=== PATIENT | female | born 1990 | race Caucasian/White ===

== ENCOUNTER 2022-07-27 07:42 | Outpatient (RCR) | payer BC, SELFPAY ==
[2022-07-27 07:57] VITALS: BMI 28.8
[2022-07-27 14:13] VITALS: BMI 28.8
== END 2022-10-13 09:55 | disposition home or self-care (01) ==
LOC: ANHDMC 07:42
PROVIDERS: PCP Internal Medicine; Visit Provider Obstetrics & Gynecology
DX: O24.319 Unspecified pre-existing diabetes mellitus in pregnancy, unspecified trimester (principal); Z3A.00 Weeks of gestation of pregnancy not specified; Z71.3 Dietary counseling and surveillance
CPT/HCPCS: 97802

== ENCOUNTER 2022-09-17 14:00 | Outpatient (RCR) | payer BC, SELFPAY ==
[2022-08-06 13:06] VITALS: BP 104/62; PULSE 92
[2022-08-12 16:22] VITALS: BP 106/59; PULSE 85
--- NOTE | 2022-08-12 17:15 | PC.NURSE ---
Pt states that she may be leaking fluid. ROM plus negative.
[2022-08-20 15:04] VITALS: BP 122/68; PULSE 82
[2022-08-26 16:19] VITALS: BP 105/61; PULSE 97
[2022-09-03 14:42] VITALS: BP 104/62; PULSE 77
[2022-09-10 15:13] VITALS: BP 93/61; PULSE 93
--- NOTE | ~2022-09-17 | US_ITS ---
EXAMINATION: US OB limited DATE: 08/12/2022 17:02 INDICATION: Gestational diabetes, evaluate ARSALAN. TECHNIQUE: Real-time ultrasound of the pelvis was performed. COMPARISON: None. FINDINGS: There is a single living fetus in vertex presentation, longitudinal lie. The placenta is right poste rior. heart rate is 151 beats per minute (bpm). The amniotic fluid index is 14.6 cm, which is n ormal (5th to 95th percentile is 8.1 to 24.8 cm). IMPRESSION: 1. Single living fetus in vertex presentation. 2. Normal ARSALAN of 14.6 cm. Reviewed, dictated and finalized at location K.
== END 2022-09-27 12:48 | disposition home or self-care (01) ==
LOC: ANHOBOP 14:00
PROVIDERS: PCP Internal Medicine; Visit Provider Obstetrics & Gynecology
DX: O24.419 Gestational diabetes mellitus in pregnancy, unspecified control (principal); Z3A.33 33 weeks gestation of pregnancy
CPT/HCPCS: 59025; 76815; 84112

== ENCOUNTER 2022-09-19 16:53 | Inpatient (IN) | payer BC, SELFPAY ==
[2022-09-19] VITALS (13 sets, daily range): BP systolic 84–112; BP diastolic 47–77; PULSE 75–107; RESP 15–17; TEMP 36.8–37.1; BMI 27.5
--- NOTE | 2022-09-19 16:53 | LDADM ---
This patient, Rosie Membreno, was admitted to Labor/Delivery/Recovery 107 on 09/19/22 at 16:53. Plans for labor, pain management and were discussed with patient. Patient/family oriented to hospital policies and general routines including ID bracelet, bed and alarms, visiting hours, pain management, procedures, bathroom and other care routines, personal items, smoking policy, room service/diet and guest tray routines, infant security routines, and visiting hours. Patient/Family are encouraged to report perceived risks to care and to ask questions if they do not understand what they are told or what they should do. See OBIX for further documentation.
[2022-09-19 18:24] LABS: Basophils Percent Auto 0.2 % (0.2-1.2); Eosinophils Percent Auto 0.4 % (0-4.4); Hematocrit 35.2 % (37.0-47.0); Hemoglobin 11.6 g/dL (12.0-15.0); Immature Granulocyte Absolute 0.08 K/mm3 (0.00-0.031); Immature Granulocyte Percent A 0.7 % (0-0.5); Mean Corpuscular Hemoglobin 30.4 pg (26-34); Mean Corpuscular Volume 92.4 fl (80-100); Mean Platelet Volume 10.3 fl (7.4-10.4); Monocytes Absolute Auto 0.6 K/mm3 (0.1-0.6); Monocytes Percent Auto 5.3 % (2.6-8.5); Neutrophils Absolute Auto 7.4 K/mm3 (1.3-6.7); Neutrophils Percent Auto 68.4 % (45.5-73.1); Platelet Count Result 270 k/mm3 (150-375); Red Blood Count 3.81 M/mm3 (4.2-5.4); Red Cell Distribution Width 13.7 % (11.5-14.5); White Blood Count 10.8 K/mm3 (4.5-10.0)
[2022-09-19] MEDS: DINOPROSTONE 10 MG VAG INSERT VAGINAL (18:41)
[2022-09-19] MEDS: LACTATED RINGERS 1,000 ML 125 ML IV CONT (19:08)
[2022-09-19] MEDS: AMPICILLIN 2 GM/NS 100 ML 2 GM/100 ML BAG IVPB (19:10)
[2022-09-19 22:26] LABS: Glucose Point of Care 76 mg/dl (65-105)
[2022-09-19 22:26] LABS: Glucose Point of Care 79 mg/dl (65-105)
[2022-09-19] MEDS: AMPICILLIN 1 GM/NS 50 ML 1 GM/50 ML BAG IVPB (23:08)
[2022-09-20] VITALS (151 sets, daily range): BP systolic 86–148; BP diastolic 44–132; PULSE 47–128; RESP 15–18; TEMP 36.6–37.6; O2SAT 86–100
[2022-09-20] MEDS: ACETAMINOPHEN 500 MG TABLET 1000 MG PO (02:20)
[2022-09-20] MEDS: AMPICILLIN 1 GM/NS 50 ML 1 GM/50 ML BAG IVPB ×3 (03:28→12:53)
[2022-09-20] MEDS: ONDANSETRON INJ 4 MG/2 ML VIAL IV PUSH (03:55)
[2022-09-20] MEDS: OXYTOCIN 30 UNITS/NS 500 ML 30 UNITS/500 ML BAG IV CONT (05:41)
[2022-09-20 06:25] LABS: Glucose Point of Care 86 mg/dl (65-105)
--- NOTE | 2022-09-20 07:25 | WPDANESEPP ---
Anes - Eval Pre Procedure Procedure: labor epidural Date/Time: 09/20/22 07:25 Surgeon: brendan Preop Diagnosis: pain during labor Pre Op Diagnosis: iol Patient Data Age: 32 Gender: F Height: 1.65 m Weight: 75 kg Last Vital Signs Temp 36.6 C 09/20/22 06:10 Pulse 86 09/20/22 06:00 Resp 15 09/20/22 04:00 BP 128/54 L 09/20/22 07:02 Allergies Allergy/AdvReac Type Severity Reaction Status Date / Time Sulfa (Sulfonamide AdvReac Unknown Nausea and Verified 09/19/22 22:30 Antibiotics) Vomiting Home Medications Medication Instructions Recorded Confirmed Type calcium carbonate 975 mg-magnesium 1 tablet PO DAILY 08/06/22 09/19/22 History carbonate 232 mg oral tablet cetirizine 10 mg capsule (Zyrtec) 10 mg PO DAILY PRN Allergy Symptoms 08/06/22 09/19/22 History cholecalciferol (vitamin D3) 25 1,000 unit PO DAILY 08/06/22 09/19/22 History mcg (1,000 unit) capsule (Vitamin D3) omega-3 650 mg-dha 400 mg-epa 200 1 cap PO DAILY 08/06/22 09/19/22 History mg-fish oil-vit D3 300 unit capsule ([place]-3 Plus Vitamin D3) vit no.95-ferrous 1 tablet PO DAILY 08/06/22 09/19/22 History fumarate 28 mg-folic acid 800 mcg tablet () pyridoxine (vitamin B6) 25 mg 25 mg PO DAILY 08/06/22 09/19/22 History tablet Laboratory Tests 09/19/22 09/19/22 09/19/22 18:16 18:35 20:45 WBC 10.8 H K/mm3 (4.5-10.0) RBC 3.81 L M/mm3 (4.2-5.4) Hgb 11.6 L g/dL (12.0-15.0) Hct 35.2 L % (37.0-47.0) MCV 92.4 fl (80-100) MCH 30.4 pg (26-34) MCHC 33.0 g/dl (32-36) RDW 13.7 % (11.5-14.5) Plt Count 270 k/mm3 (150-375) MPV 10.3 fl (7.4-10.4) Immature Gran % (Auto) 0.7 H % (0-0.5) Neut % (Auto) 68.4 % (45.5-73.1) Lymph % (Auto) 25.0 % (18.3-44.2) [place] % (Auto) 5.3 % (2.6-8.5) Eos % (Auto) 0.4 % (0-4.4) Baso % (Auto) 0.2 % (0.2-1.2) Lymph # (Auto) 2.70 K/mm3 (0.9-3.2) [place] # (Auto) 0.6 K/mm3 (0.1-0.6) Eos # (Auto) 0.0 K/mm3 (0-0.3) Baso # (Auto) 0.0 K/mm3 (0.0-0.1) Abs Immat Gran (auto) 0.08 H K/mm3 (0.00-0.031) Absolute Neuts (auto) 7.4 H K/mm3 (1.3-6.7) Absolute Nucleated RBC 0.0 K/mm3 (0.0-0.012) Nucleated RBC % 0.0 % (0.0-0.2) POC Capillary Glucose 79 mg/dl 76 mg/dl (65-105) (65-105) RPR Pending Blood Type A Positive Antibody Screen Negative 09/20/22 06:18 WBC RBC Hgb Hct MCV MCH MCHC RDW Plt Count MPV Immature Gran % (Auto) Neut % (Auto) Lymph % (Auto) [place] % (Auto) Eos % (Auto) Baso % (Auto) Lymph # (Auto) [place] # (Auto) Eos # (Auto) Baso # (Auto) Abs Immat Gran (auto) Absolute Neuts (auto) Absolute Nucleated RBC Nucleated RBC % POC Capillary Glucose 86 mg/dl (65-105) RPR Blood Type Antibody Screen Patient hx anesthesia problems: none Family hx anesthesia problems: none Results Review: All pre-operative results and documents have been reviewed as part of the pre-operative evaluation. [facility] Past Medical History Medical History (Updated 09/20/22 @ 07:25 by Sandy Stauffer CRNA) IUP (intrauterine ), incidental Surgical History Surgical History [place] teeth removed Family History Family History (Updated 08/26/22 @ 16:23 by Roma Seth RN) Father Malignant neoplasm of prostate Family history of hypercholesterolemia Grandparent Malignant neoplasm of prostate Family history of malignant neoplasm of breast in first degree relative, Onset Age: 60 Family history of hypercholeste
--- NOTE | 2022-09-20 08:53 | P.HP_ITS ---
Obstetrics - Admit Note Admission Note: record reviewed. Additions to the history and/or subsequent changes in the physical findings follow. 32 y/o G1 at 39 4/7 weeks here for scheduled induction of labor. Well- controlled A1DM. GBS pos. Cervidil overnight, has been withdrawn. She is receiving oxytocin. and is comfortable with epidural. AVSS NST reactive TOCO: contractions every 2-5 min ABD soft, nontender, gravid, vertex EXT nontender Cervix 4-5/80/-2. AROM with thinly mec-stained fluid. Vertex. A: IUP at term with A1DM, GBS, here for induction of labor. P: Oxytocin, ampicillin, accuchecks. Anticipate .
[2022-09-20 10:05] LABS: Glucose Point of Care 81 mg/dl (65-105)
[2022-09-20] MEDS: LACTATED RINGERS 1,000 ML 125 ML IV CONT (11:23)
--- NOTE | 2022-09-20 12:36 | PM.OBPNLAB ---
Pain Control Date/time seen: 09/20/22 12:36 Comments: Comfortable with epidural. Pelvic Exam Dilation (cm): 7 Effacement (%): 100 station: +1 Contractions Monitor mode: External Contraction frequency: 4 Contraction pattern: Regular Status status: Category l Assessment and Plan Comments: Accucheck 81. IUPC placed. Continue labor.
[2022-09-20 13:01] LABS: Glucose Point of Care 63 mg/dl (65-105)
[2022-09-20 13:41] LABS: Glucose Point of Care 82 mg/dl (65-105)
[2022-09-20 15:49] LABS: Rapid Plasma Reagin Non-Reactive (NonReactive)
--- NOTE | 2022-09-20 16:16 | PM.OBPRVD ---
OB - Delivery Note Procedure Delivery date: 09/20/22 Procedure: Induction of labor with Events: Gestational Diabetes Induction method: Per Cervidil Protocol Delivery augmentation: Rupture of Membranes and Pitocin Delivery monitor: External FHT, External Uterine and Internal Uterine Route of delivery: Laceration Description: Perineal - 2nd Degree Delivery repair: vicryl (3-0) Specimen: Yes (cord blood, placenta) Quantitative Blood Loss (ml): 420 Anesthesia type: Epidural Disposition: PACU Complications: None Narrative: 32 y/o G1 at 39 4/7 weeks gestation who presented to the hospital for induction of labor. Cervidil was placed overnight. She received ampicillin for GBS colonization. Accuchecks were normal throughout labor. Cervidil was withdrawn in the morning, and oxytocin was administered intravenously. Amniotomy was performed with return of clear fluid. She received an epidural for pain control. Her labor progressed and her cervix dilated completely. She pushed with good effort and delivered the 's head to the perineum, followed by the body. The nose and mouth were bulb suctioned. After a delay, the cord was clamped and cut. The infant was handed off the field. Cord blood was collected. The placenta delivered spontaneously and was grossly normal in appearance. The usual 3 vessel cord was noted. A second degree midline perineal laceration was sustained. This was reapproximated using 3 0 Vicryl in the usual layered fashion. Excellent hemostasis resulted as did excellent reapproximation of the normal anatomy. Needle and instrument counts were correct. The patient was taken to recovery room in stable condition. The infant went to the nursery in stable condition. I was present and scrubbed for the entire delivery. Baby Date of : 09/20/22 Time of : 15:51 Weeks of gestation at delivery: 39 Infant gender: Female presentation: vertex position: Left Occiput Anterior Placenta delivery description: Spontaneous and Normal Configuration Cord Vessel Description: 3 Vessels and Delayed Cord Clamping score one minute: 8 score five minutes: 9
--- NOTE | 2022-09-20 16:18 | PM.OBDSVD ---
DS: Admitting Diagnosis Discharge Date 09/22/22 Admitting Diagnosis IUP at 39 4/7 weeks A1DM GBS pos DS: Discharge Diagnosis Discharge Diagnosis (1) (normal spontaneous vaginal delivery): Code(s): O80 - Encounter for full-term uncomplicated delivery Status: Acute (2) GDM (gestational diabetes mellitus), class A1: Code(s): O24.410 - Gestational diabetes mellitus in , diet controlled Status: Acute (3) GBS (group B Streptococcus carrier), +RV culture, currently : Code(s): O99.820 - Streptococcus B carrier state complicating Status: Acute OB - DS: Summary OB Procedures : None OB Procedures Intrapartum: Spontaneous Vag Delivery and GBS prophylaxis OB Procedures: : None Time Spent with Patient Time attestation: Total time spent providing and/or coordinating discharge services: DS: Data Data Completed and Pending Labs on day of discharge: Labs from last 24 hours 09/20/22 09/20/22 09/20/22 13:29 12:57 09:58 WBC RBC Hgb Hct MCV MCH MCHC RDW Plt Count MPV Immature Gran % (Auto) Neut % (Auto) Lymph % (Auto) [place] % (Auto) Eos % (Auto) Baso % (Auto) Lymph # (Auto) [place] # (Auto) Eos # (Auto) Baso # (Auto) Abs Immat Gran (auto) Absolute Neuts (auto) Absolute Nucleated RBC Nucleated RBC % POC Capillary Glucose 82 63 L 81 RPR Blood Type Antibody Screen 09/20/22 09/19/22 09/19/22 06:18 20:45 18:35 WBC RBC Hgb Hct MCV MCH MCHC RDW Plt Count MPV Immature Gran % (Auto) Neut % (Auto) Lymph % (Auto) [place] % (Auto) Eos % (Auto) Baso % (Auto) Lymph # (Auto) [place] # (Auto) Eos # (Auto) Baso # (Auto) Abs Immat Gran (auto) Absolute Neuts (auto) Absolute Nucleated RBC Nucleated RBC % POC Capillary Glucose 86 76 79 RPR Blood Type Antibody Screen 09/19/22 18:16 WBC 10.8 H RBC 3.81 L Hgb 11.6 L Hct 35.2 L MCV 92.4 MCH 30.4 MCHC 33.0 RDW 13.7 Plt Count 270 MPV 10.3 Immature Gran % (Auto) 0.7 H Neut % (Auto) 68.4 Lymph % (Auto) 25.0 [place] % (Auto) 5.3 Eos % (Auto) 0.4 Baso % (Auto) 0.2 Lymph # (Auto) 2.70 [place] # (Auto) 0.6 Eos # (Auto) 0.0 Baso # (Auto) 0.0 Abs Immat Gran (auto) 0.08 H Absolute Neuts (auto) 7.4 H Absolute Nucleated RBC 0.0 Nucleated RBC % 0.0 POC Capillary Glucose RPR Non-reactive Blood Type A Positive Antibody Screen Negative Discharge Plan Discharge Attending physician on discharge: Barrie Meier Discharging Clinician: Barrie Meier Patient Disposition: Home, Self-Care Activity: pelvic rest Diet: regular Discharge Instructions: Call or return if temperature above 100.4? F, increased abdominal pain, increased vaginal bleeding or any new problems. Stand Alone Forms: General Discharge Information Follow-up/Referrals: Barrie Meire MD [Physician] - 6 Weeks Discharge Medications: New ibuprofen 600 mg tablet 600 mg PO Q6H PRN (Reason: cramps) Qty: 30 0RF hydrocodone-acetaminophen 5-325 mg tablet 1 tablet PO Q4-6H PRN (Reason: pain) Qty: 20 0RF Continued cholecalciferol (vitamin D3) [Vitamin D3] 25 mcg (1,000 unit) Capsule 1,000 unit PO DAILY PNV cmb#95-ferrous fumarate-FA [] 28 mg iron- 800 mcg Tablet 1 tablet PO DAILY [place]-3 Plus Vitamin D3 [phone] bf-op-cy-unit Capsule 1 cap PO DAILY calcium and magnesium carbonat 975-232 mg Tablet 1 tablet PO DAILY Patient Comments: Calcium 1000mg and Magnesium 500 mg pyridoxine (vitamin B6) 25 mg Tablet 25 mg PO DAILY Zyrtec 10 mg Capsule 10 mg PO DAILY PRN (Reason: Allergy Symptoms) Date of admission: 09/19/22 16:53 Primary Care Provider: PHYSICIAN,[employer]CH[employer]ECT Admitting Provider: Barrie Meier Attending physician on admis
[2022-09-20 16:20] LABS: Glucose Point of Care 85 mg/dl (65-105)
[2022-09-20] MEDS: OXYTOCIN 30 UNITS/NS 500 ML 30 UNITS/500 ML BAG 125 UNITS IV CONT (16:39)
[2022-09-20] MEDS: ACETAMINOPHEN 325 MG TABLET 650 MG PO (17:41)
[2022-09-20] MEDS: BENZOCAINE 20% AER SPR (*SP) 56 GM CAN 1 SPRAY TOPICAL (19:46)
[2022-09-20] MEDS: WITCH HAZEL 40 PADS 1 PAD TOPICAL (19:47)
[2022-09-20] MEDS: IBUPROFEN 600 MG TABLET PO (20:11)
--- NOTE | 2022-09-20 22:21 | OBPPTRN ---
09/20/2022 at 2004 Patient transferred to post room #279 via wheelchair. Support person present. Oriented to unit, room, information board, rooming in, admission packet and security measures. Patient verbalizes understanding.
[2022-09-21] MEDS: ACETAMINOPHEN 325 MG TABLET 650 MG PO ×2 (00:06→06:30)
[2022-09-21] MEDS: IBUPROFEN 600 MG TABLET PO ×3 (02:37→21:13)
[2022-09-21 04:03] LABS: Hematocrit 32.1 % (37.0-47.0); Hemoglobin 10.3 g/dL (12.0-15.0)
[2022-09-21] MEDS: MULTIVIT/MIN/PREN/FOL AC/IRON TABLET 1 TAB PO (06:30)
[2022-09-21] MEDS: DOCUSATE SODIUM 100 MG CAPSULE PO (06:30)
[2022-09-21 07:25] VITALS: BP 91/50; PULSE 90; RESP 16; TEMP 36.6; O2SAT 96
--- NOTE | 2022-09-21 08:22 | WPDANLDPN2 ---
Anes-Prog Note L&D Date/Time: 09/21/22 08:22 Neuro status: Neuro function grossly intact. Cardiovascular status: normal Respiratory status: normal Airway patency: baseline Mental status: baseline Post-Op hydration status: normal Vital Signs: Last Vital Signs Temp 37.1 C 09/20/22 22:30 Pulse 96 09/20/22 22:30 Resp 18 09/20/22 22:30 BP 104/57 L 09/20/22 22:30 Pulse Ox 96 09/20/22 22:30 O2 Del Method Room Air 09/20/22 22:30 Pain score (VAS): 0 I/O: Intake & Output 09/20/22 09/21/22 09/21/22 23:59 07:59 15:59 Intake Total 500 Balance 500 Post-procedural complaints: none Patient feedback: Patient satisfied with anesthetic care.
--- NOTE | 2022-09-21 09:30 | PC.NURSE ---
0858 - Purposefully rounded to assess needs. Mother is grooming in the restroom and it is not a good time for a consult. Mother was encouraged to place upright [id number] on her chest using massage touch to stimulate for feeding when she was finished. Mother states the next attempt is about 0930. Parents were encouraged to call for assistance to see what the infant will do today. Parents voiced understanding of information.
--- NOTE | 2022-09-21 11:20 | PC.NURSE ---
Addendum entered by Heidi Molina RN 09/21/22 11:32: Discussed the pie demonstration for signs of good intake. Original Note: [id number] Consulted after a call request. Mother is cradling infant in her arms.Mother works well with her with encouragement and education. Encouraged understanding of the benefits of skin to skin (demonstrating unwrapping and placing upright on her chest), stimulating with massage touch, changing positions to encourage wakefulness, how to watch for early feeding cues, hand expression, responsive feeding, feeding on demand (aiming for 8-12 times in 24 hours, about every 2-3 hours), milk production, building/maintaining a milk supply, duration of feeding, signs of adequate intake/output and how to record on the feeding sheet. Infant is sleepy and reluctant to wake to breastfeed. Infants diaper is checked and there is a small amount of meconium cleaned off. Infant is awake but not showing feeding cues, then goes to sleep. Mother has colostrum previously pumped and a decision was made to syringe feed the first milk to the infant. While is sucking on a gloved finger small amounts of colostrum are syringe fed to the infant. After 3 mls of milk is fed to the , then she was placed [id number] on mother. Reviewed positioning and ear, shoulder, hip alignment, supporting the breast to facilitate a deep latch, asymmetrical latch (off-center), leading with the chin with a big, open, wide gape and body close to mother. Infant latched optimally to the right breast in cross cradle/laid-back position. Education given to mother of how to visualize suck/swallow ratios and listen for drinking at the breast. Infant was able to maintain latch without discomfort to mother. Nipple care reviewed with optimal latch and good positioning. Encourage using clean hands when feeding infant, hand expressing or . Resources used to facilitate learning were used with the tool. Mother voiced understanding of skin to skin, stimulating with massage touch, responsive feedings, hand expressed colostrum, talking to to encourage if it has been 2 -2.5 hours since the start of the last , to call if does not latch, or if there is discomfort with . Encouraged frequently feedings. Resources provided for inpatient assistance with name written on the communication board. Parents voiced understanding of information, demonstrated learning and will call if there is a request for assistance. Reported to the Primary RN.
[2022-09-21 11:52] VITALS: BP 94/60; PULSE 87; RESP 16; TEMP 36.6; O2SAT 98
[2022-09-21] MEDS: HYDROcodone/acetaminophen (*CRX) 5-325 MG TABLET 1 TAB PO (13:00)
--- NOTE | 2022-09-21 16:55 | PM.OBPNVD ---
OB - PN: Subj Subjective Date/time seen: 09/21/22 16:55 Narrative: Pain OK. OB - PN: Obj Data Labs 09/21/22 03:40 Labs: Laboratory Results - last 24 hr 09/21/22 03:40 Hgb 10.3 L Hct 32.1 L OB - PN A/P Plan day: 1 Plan: routine care Comments: A: PPD#1, doing well. P: Routine care. Exam Psych: Other: AVSS ABD soft, nontender, fundus firm EXT nontender
[2022-09-21 21:15] VITALS: BP 109/73; PULSE 85; RESP 16; TEMP 37.1; O2SAT 98
[2022-09-22 07:45] VITALS: BP 92/49; PULSE 85; RESP 16; TEMP 36.9; O2SAT 98
[2022-09-22] MEDS: DOCUSATE SODIUM 100 MG CAPSULE PO (08:45)
[2022-09-22] MEDS: WITCH HAZEL 40 PADS 1 PAD TOPICAL (08:45)
[2022-09-22] MEDS: BENZOCAINE 20% AER SPR (*SP) 56 GM CAN 1 SPRAY TOPICAL (08:45)
[2022-09-22] MEDS: MULTIVIT/MIN/PREN/FOL AC/IRON TABLET 1 TAB PO (08:45)
[2022-09-22] MEDS: IBUPROFEN 600 MG TABLET PO (08:45)
--- NOTE | 2022-09-22 08:54 | PM.OBPNVD ---
OB - PN: Subj Subjective Date/time seen: 09/22/22 08:54 Narrative: Pain OK. Would like to go home. OB - PN: Obj Data Labs 09/21/22 03:40 OB - PN A/P Plan Comments: A: PPD#2, doing well. P: Home to f/u 6 weeks. Exam Psych: Other: AVSS ABD soft, nontender, fundus firm EXT nontender
[2022-09-22] MEDS: HYDROcodone/acetaminophen (*CRX) 5-325 MG TABLET 1 TAB PO (13:38)
--- NOTE | 2022-09-22 14:10 | PC.NURSE ---
[id number] Consulted with patient to assess needs related to . Mother led conversation with her experience with feeding baby so far. Mother works well with her infant with encouragement. Reviewed working with , supporting breast and how to protect the nipples with an optimal deep latch, good positioning, and good hand washing. is reluctant to open mouth for . Infant at times will open for a latch and suck a few times, then hold the nipple in the mouth. We discussed bottle feeding and how it is different from the effective . may be a bit confused at this time after receiving two bottles back to back during the night. Reviewed positioning and alignment, supporting breast, off-centered (asymmetrical latch) and leading with the chin with big, open, wide gape. Infant latched optimally to the left breast in cross cradle position with patient and RN using the sandwich hold to assist with a deep latch. Education given to mother of how to visualize suck/swallow ratios and listen for drinking at the breast. Infant was able to maintain latch without discomfort to mother. Nipple care reviewed with optimal latch, good positioning and using clean hands when feeding her and touching her breast. We reviewed, watched, and listened for swallowing. We discussed the difference between non nutritive sucking versus nutritive sucking for an effective breastfeed. Reminded parents to use good handwashing technique to prevent infection. Parents are feeding appropriately for growth of infant and understands stimulating to eat if needed. Infant has had adequate feedings in the last 24 hours meets the outcomes for weight, output and jaundice at this time. There have been 8 breast stimulations in the last 24 hours with formula supplemental feedings with a bottle. Mother states she is confident to continue feeding her infant at home, when to call for assistance and denies any additional assistance or education at this time. Reinforced understanding of milk production, protecting the milk supply, transition of milk, signs of adequate intake, transition of stool, prevention/relief of engorgement, responsive watching for feeding cues, the different methods of stimulating to breastfeed 2-3 hours after the start of the last feeding, community resources, when to call a provider using the resource of the mom and baby guide. Parents voiced understanding of the education shared. Reported to the primary RN.
--- NOTE | 2022-09-22 17:23 | PC.NURSE ---
Pt lives 50 minutes away in [place]. Infant has follow up with welding foreman tomorrow. Dr. Meier states that there is no need for a follow up visit at the hospital for the pt.
== END 2022-09-22 15:33 | disposition home or self-care (01) | DRG 807 ==
LOC: ANHLDR 09-20 16:19 → ANHOB2 09-20 21:50
PROVIDERS: Admitting Provider Obstetrics & Gynecology; Visit Provider Obstetrics & Gynecology
DX: O24.429 Gestational diabetes mellitus in childbirth, unspecified control (principal); Z37.0 Single live birth; Z3A.39 39 weeks gestation of pregnancy; O99.824 Streptococcus B carrier state complicating childbirth; O70.1 Second degree perineal laceration during delivery; O77.0 Labor and delivery complicated by meconium in amniotic fluid
CPT/HCPCS: 36415; 82948; 85014; 85018; 85025; 86592; 86850; 86900; 86901; 88307; A9270; J0290; J2405; J2590; J2795; J7120